=== PATIENT | male | born 1985 | race Caucasian/White ===

== ENCOUNTER 2019-09-14 17:15 | Emergency (ER) | payer SELFPAY ==
[~2019-09-14] VITALS: Ht 182.9 cm; Wt 97.7 kg
[2019-09-14 17:19] VITALS: Ht 182.9 cm; Wt 97.7 kg
[2019-09-14] MEDS ORDERED: BUPRENORPHIN-N1 EACH SL (17:21)
[2019-09-14 17:59] LABS: BASOPHILS 0.1 % (0-2); EOSINOPHILS 0.1 % (0-7); HEMATOCRIT 40.7 % (42.0-54.0); HEMOGLOBIN 14.1 g/dL (13.5-17.5); IMMATURE GRANULOCYTES 0.2 % (0-5); LYMPHOCYTES 6.2 % (15-50); MCH 30.8 pg (26.0-34.0); MCHC 34.6 g/dL (31.0-37.0); MCV 88.9 fL (80.0-100.0); MEAN PLATELET VOLUME 9.2 fL (7.4-10.4); MONOCYTES 9.5 % (2-11); NEUTROPHILS 83.9 % (40-80); PLATELET COUNT 314 10x3/uL (130-400); RBC 4.58 10x6/uL (4.20-6.10); RDW 12.4 % (11.5-14.5); WBC 18.6 10x3/uL (4.8-10.8)
[2019-09-14 18:18] LABS: CALC OSMOLALITY 259 mosm/kg (275-300); CALCIUM 9.3 mg/dL (8.5-10.1); CARBON DIOXIDE 27.7 mmol/L (21.0-32.0); CHLORIDE - SERUM 94 mmol/L (98-107); GLUCOSE 102 mg/dL (74-106); POTASSIUM - SERUM 3.3 mmol/L (3.5-5.1); SODIUM 130 mmol/L (136-145); UREA NITROGEN 11 mg/dL (7-18); eGFR NON AFRICAN AMERICAN > 90 mL/min (90-120)
[2019-09-14 18:34] LABS: ALBUMIN 3.7 g/dL (3.4-5.0); ALKALINE PHOSPHATASE 82 U/L (30-120); ALT (SGPT) 17 U/L (10-68); BILIRUBIN - TOTAL 0.55 mg/dL (0.2-1.3); CREATINE KINASE 29 UL (21-232); MAGNESIUM - SERUM 1.9 mg/dL (1.8-2.4); PROTEIN - SERUM 7.9 g/dL (6.4-8.2)
[2019-09-14 18:35] LABS: TROPONIN-I < 0.017 ng/mL (0.000-0.060)
[2019-09-14 19:06] LABS: APTT 30.7 SECONDS (22.8-39.4); INR 1.17 (0.85-1.17); PROTIME 14.9 SECONDS (11.6-15.0)
[2019-09-14] MEDS ORDERED: LEVAQUIN750 MG PO (19:09)
[2019-09-14 21:23] VITALS: BP 112/55
== END 2019-09-14 21:23 | disposition home or self-care (01) ==
LOC: D.ER 17:15
PROVIDERS: Emergency Medicine
DX: J18.9 Pneumonia, unspecified organism (principal); E87.6 Hypokalemia; E87.1 Hypo-osmolality and hyponatremia; D72.829 Elevated white blood cell count, unspecified; F11.20 Opioid dependence, uncomplicated

== ENCOUNTER 2019-11-21 10:12 | Emergency (ER) | payer SELFPAY ==
[~2019-11-21] VITALS: Ht 182.9 cm; Wt 100.0 kg
[~2019-11-21 10:12] MED LIST: BUPRENORPHIN-N1 EACH SL; LEVAQUIN750 MG PO
[2019-11-21 10:24] VITALS: Ht 182.9 cm; Wt 100.0 kg
[2019-11-21] MEDS ORDERED: PENICILLIN V P500 MG PO (10:34)
[2019-11-21 10:50] VITALS: BP 132/72
== END 2019-11-21 10:50 | disposition home or self-care (01) ==
LOC: D.ER 10:12
DX: K04.7 Periapical abscess without sinus (principal); K08.89 Other specified disorders of teeth and supporting structures